=== PATIENT | male | born 1970 | race African-American/Black ===

== ENCOUNTER 2023-05-20 13:26 | Inpatient (IN) | payer OTHER ==
[2023-05-20 14:09] VITALS: BMI 23.6
[2023-05-20] MEDS ORDERED: COLLOIDAL OATMEAL 1 BAR EACH TP PRN (19:01)
[2023-05-20] MEDS ORDERED: NICOTINE POLACRILEX 2 MG GUM BUC PRN (19:01)
[2023-05-20] MEDS ORDERED: IBUPROFEN 400 MG TABLET (FP) PO PRN (19:01)
[2023-05-20] MEDS ORDERED: IBUPROFEN 600 MG TABLET (FP) PO PRN (19:01)
[2023-05-20] MEDS ORDERED: MAGNESIUM HYDROX 2400MG/30ML ORAL SUSPENSION 30 ML CUP PO PRN (19:01)
[2023-05-20] MEDS ORDERED: BENZONATATE 200 MG CAPSULE PO PRN (19:01)
[2023-05-20] MEDS ORDERED: hydrOXYzine PAMOATE 25 MG CAPSULE (FP) PO PRN (19:01)
[2023-05-20] MEDS ORDERED: P-EPHED 60MG/TRIPROLIDI 2.5MG TABLET PO PRN (19:01)
[2023-05-20] MEDS ORDERED: MAG HYDROX/AL HYDROX/SIMETH 30 ML UNIT-DOSE CUP PO PRN (19:01)
[2023-05-20] MEDS ORDERED: ACETAMINOPHEN 325 MG TABLET (FP) PO PRN (19:01)
[2023-05-20] MEDS ORDERED: guaiFENesin 600 MG TABLET.ER (FP) PO PRN (19:01)
[2023-05-20] MEDS ORDERED: POLYETHYLENE GLYCOL (HEALTHYLAX) 3350 17 GM PACKET PO PRN (19:01)
[2023-05-20] MEDS ORDERED: LOPERAMIDE HCL 2 MG CAPSULE PO PRN (19:01)
[2023-05-20] MEDS ORDERED: BENZOCAINE/MENTHOL (CHLORASEPTIC ) LOZENGE MM PRN (19:01)
[2023-05-20] MEDS ORDERED: TUBERCULIN PPD 5 TU/0.1ML VIAL ID ONE (19:51)
[2023-05-20] MEDS: MELATONIN 5 MG TABLETS PO SCH (21:27)
[2023-05-20] MEDS: THIAMINE HCL 100 MG TABLET (FP) PO SCH (21:27)
[2023-05-20] MEDS ORDERED: TUBERCULIN PPD 5 TU/0.1ML SYRINGE (IN PATIENT USE ONLY) ID ONE (23:02)
[2023-05-21 09:05] LABS: HEMATOCRIT 37.7 % (35.4-49); HEMOGLOBIN 12.8 GM/dL (11.7-16.9); MCH 29.7 pg (25.7-33.7); MEAN CELL VOLUME 87.5 fl (80-96); MEAN PLT VOLUME 8.4 fl (7.5-11.1); PLATELET COUNT 201 10^3/uL (134-434); RBC 4.31 M/mm3 (4.00-5.60); RDW 14.3 % (11.9-15.9); WHITE BLOOD COUNT 3.6 K/mm3 (4.0-10.0)
[2023-05-21 09:09] LABS: CHLORIDE 104 mmol/L (98-107); POTASSIUM 3.7 mmol/L (3.5-5.1); SODIUM 136 mmol/L (136-145)
[2023-05-21 09:11] LABS: CALCIUM 8.2 mg/dL (8.5-10.1)
[2023-05-21 09:12] LABS: ALBUMIN 2.9 g/dl (3.4-5.0); ANION GAP 4 mmol/L (4-13); BLOOD UREA NITROGEN 10.1 mg/dL (7-18); CO2 28 mmol/L (21-32); GLUCOSE,RANDOM 92 mg/dL (74-106)
[2023-05-21 09:15] LABS: SGOT/AST 14 U/L (15-37); SGPT/ALT 16 U/L (13-61)
[2023-05-21 09:16] LABS: TOT PROT 6.2 g/dl (6.4-8.2)
[2023-05-21 09:17] LABS: ALK PHOS 109 U/L (45-117); BILIRUBIN,TOTAL 0.3 mg/dL (0.2-1)
[2023-05-21] MEDS: PRENATAL VITAMINS W/ FOLIC ACID TABLET (FP) PO SCH (10:14)
[2023-05-21 11:35] LABS: SYPHILIS W/ RPR CONF NON-REACTIVE (NONREACTIVE)
[2023-05-21 15:42] LABS: EPI CELLS 5 /uL (0-25.1); HYALINE CASTS 1 /uL (0-3.1); URINE APPEARANCE CLEAR; URINE BACTERIA 38 /uL (0-1359); URINE BILIRUBIN NEGATIVE (NEGATIVE); URINE COLOR YELLOW; URINE GLUCOSE (UA) NEGATIVE (NEGATIVE); URINE KETONE NEGATIVE (NEGATIVE); URINE LEUK ESTERASE TRACE (NEGATIVE); URINE NITRITE NEGATIVE (NEGATIVE); URINE PROTEIN NEGATIVE (NEGATIVE); URINE RBC 4 /uL (0-23.9); URINE WBC 18 /uL (0-25.8)
[2023-05-21] MEDS: THIAMINE HCL 100 MG TABLET (FP) PO SCH (23:20)
[2023-05-21] MEDS: MELATONIN 5 MG TABLETS PO SCH (23:20)
[2023-05-22] MEDS: PRENATAL VITAMINS W/ FOLIC ACID TABLET (FP) PO SCH (09:56)
[2023-05-22] MEDS: MELATONIN 5 MG TABLETS PO SCH (22:16)
[2023-05-22] MEDS: THIAMINE HCL 100 MG TABLET (FP) PO SCH (22:17)
[2023-05-23] MEDS: PRENATAL VITAMINS W/ FOLIC ACID TABLET (FP) PO SCH (09:40)
[2023-05-23] MEDS ORDERED: SODIUM CHLORIDE NASAL SPRAY 44 ML BOTTLE NS PRN (12:36)
[2023-05-23] MEDS: CALCIUM 250MG/VIT-D 125 UNITS 1 COMBO TABLET PO SCH (13:00)
[2023-05-23] MEDS: guaiFENesin 600 MG TABLET.ER (FP) PO SCH ×2 (13:15→21:53)
[2023-05-23] MEDS: MELATONIN 5 MG TABLETS PO SCH (21:53)
[2023-05-23] MEDS: THIAMINE HCL 100 MG TABLET (FP) PO SCH (21:54)
[2023-05-24] MEDS: guaiFENesin 600 MG TABLET.ER (FP) PO SCH ×2 (10:05→23:45)
[2023-05-24] MEDS: CALCIUM 250MG/VIT-D 125 UNITS 1 COMBO TABLET PO SCH (10:05)
[2023-05-24] MEDS: PRENATAL VITAMINS W/ FOLIC ACID TABLET (FP) PO SCH (10:05)
[2023-05-24] MEDS: MELATONIN 5 MG TABLETS PO SCH (23:45)
[2023-05-24] MEDS: THIAMINE HCL 100 MG TABLET (FP) PO SCH (23:46)
[2023-05-25] MEDS: CALCIUM 250MG/VIT-D 125 UNITS 1 COMBO TABLET PO SCH (09:40)
[2023-05-25] MEDS: PRENATAL VITAMINS W/ FOLIC ACID TABLET (FP) PO SCH (09:40)
[2023-05-25] MEDS: guaiFENesin 600 MG TABLET.ER (FP) PO SCH ×2 (09:40→22:01)
[2023-05-25] MEDS: MELATONIN 5 MG TABLETS PO SCH (22:01)
[2023-05-25] MEDS: THIAMINE HCL 100 MG TABLET (FP) PO SCH (22:01)
[2023-05-26] MEDS: PRENATAL VITAMINS W/ FOLIC ACID TABLET (FP) PO SCH (10:33)
[2023-05-26] MEDS: CALCIUM 250MG/VIT-D 125 UNITS 1 COMBO TABLET PO SCH (10:33)
[2023-05-26] MEDS: guaiFENesin 600 MG TABLET.ER (FP) PO SCH ×2 (10:33→21:37)
[2023-05-26] MEDS: THIAMINE HCL 100 MG TABLET (FP) PO SCH (21:37)
[2023-05-26] MEDS: MELATONIN 5 MG TABLETS PO SCH (21:37)
[2023-05-27] MEDS: guaiFENesin 600 MG TABLET.ER (FP) PO SCH ×2 (09:30→23:26)
[2023-05-27] MEDS: PRENATAL VITAMINS W/ FOLIC ACID TABLET (FP) PO SCH (09:30)
[2023-05-27] MEDS: CALCIUM 250MG/VIT-D 125 UNITS 1 COMBO TABLET PO SCH (09:30)
[2023-05-27] MEDS: THIAMINE HCL 100 MG TABLET (FP) PO SCH (23:26)
[2023-05-27] MEDS: MELATONIN 5 MG TABLETS PO SCH (23:26)
[2023-05-28] MEDS: guaiFENesin 600 MG TABLET.ER (FP) PO SCH ×2 (10:00→21:54)
[2023-05-28] MEDS: PRENATAL VITAMINS W/ FOLIC ACID TABLET (FP) PO SCH (10:00)
[2023-05-28] MEDS: CALCIUM 250MG/VIT-D 125 UNITS 1 COMBO TABLET PO SCH (10:00)
[2023-05-28] MEDS: THIAMINE HCL 100 MG TABLET (FP) PO SCH (21:54)
[2023-05-28] MEDS: MELATONIN 5 MG TABLETS PO SCH (21:54)
[2023-05-29] MEDS: PRENATAL VITAMINS W/ FOLIC ACID TABLET (FP) PO SCH (09:29)
[2023-05-29] MEDS: guaiFENesin 600 MG TABLET.ER (FP) PO SCH ×2 (09:29→23:24)
[2023-05-29] MEDS: CALCIUM 250MG/VIT-D 125 UNITS 1 COMBO TABLET PO SCH (09:29)
[2023-05-29] MEDS: MELATONIN 5 MG TABLETS PO SCH (23:24)
[2023-05-29] MEDS: THIAMINE HCL 100 MG TABLET (FP) PO SCH (23:24)
[2023-05-30] MEDS: CALCIUM 250MG/VIT-D 125 UNITS 1 COMBO TABLET PO SCH (09:32)
[2023-05-30] MEDS: guaiFENesin 600 MG TABLET.ER (FP) PO SCH ×2 (09:32→22:50)
[2023-05-30] MEDS: PRENATAL VITAMINS W/ FOLIC ACID TABLET (FP) PO SCH (09:32)
[2023-05-30] MEDS: TOLNAFTATE 1% CREAM 15 GM TUBE TP SCH ×2 (14:29→22:50)
[2023-05-30] MEDS: BACLOFEN 10 MG TABLET (FP) PO SCH (22:49)
[2023-05-30] MEDS: MELATONIN 5 MG TABLETS PO SCH (22:49)
[2023-05-30] MEDS: THIAMINE HCL 100 MG TABLET (FP) PO SCH (22:50)
[2023-05-31] MEDS: BACLOFEN 10 MG TABLET (FP) PO SCH (09:36)
[2023-05-31] MEDS: CALCIUM 250MG/VIT-D 125 UNITS 1 COMBO TABLET PO SCH (09:37)
[2023-05-31] MEDS: PRENATAL VITAMINS W/ FOLIC ACID TABLET (FP) PO SCH (09:37)
[2023-05-31] MEDS: TOLNAFTATE 1% CREAM 15 GM TUBE TP SCH ×2 (09:37→22:02)
[2023-05-31] MEDS: guaiFENesin 600 MG TABLET.ER (FP) PO SCH ×2 (09:37→22:02)
[2023-05-31] MEDS ORDERED: BACLOFEN 10 MG TABLET (FP) PO PRN (16:06)
[2023-05-31] MEDS: MELATONIN 5 MG TABLETS PO SCH (22:02)
[2023-05-31] MEDS: THIAMINE HCL 100 MG TABLET (FP) PO SCH (22:02)
[2023-06-01] MEDS: CALCIUM 250MG/VIT-D 125 UNITS 1 COMBO TABLET PO SCH (10:02)
[2023-06-01] MEDS: PRENATAL VITAMINS W/ FOLIC ACID TABLET (FP) PO SCH (10:02)
[2023-06-01] MEDS: guaiFENesin 600 MG TABLET.ER (FP) PO SCH ×2 (10:02→21:48)
[2023-06-01] MEDS: TOLNAFTATE 1% CREAM 15 GM TUBE TP SCH ×2 (10:03→21:48)
[2023-06-01] MEDS: MELATONIN 5 MG TABLETS PO SCH (21:48)
[2023-06-01] MEDS: THIAMINE HCL 100 MG TABLET (FP) PO SCH (21:48)
[2023-06-02] MEDS: CALCIUM 250MG/VIT-D 125 UNITS 1 COMBO TABLET PO SCH (09:26)
[2023-06-02] MEDS: guaiFENesin 600 MG TABLET.ER (FP) PO SCH ×2 (09:26→21:24)
[2023-06-02] MEDS: PRENATAL VITAMINS W/ FOLIC ACID TABLET (FP) PO SCH (09:26)
[2023-06-02] MEDS: TOLNAFTATE 1% CREAM 15 GM TUBE TP SCH ×2 (09:26→21:24)
[2023-06-02] MEDS: MELATONIN 5 MG TABLETS PO SCH (21:24)
[2023-06-02] MEDS: THIAMINE HCL 100 MG TABLET (FP) PO SCH (21:25)
[2023-06-03] MEDS: TOLNAFTATE 1% CREAM 15 GM TUBE TP SCH ×2 (10:12→21:27)
[2023-06-03] MEDS: CALCIUM 250MG/VIT-D 125 UNITS 1 COMBO TABLET PO SCH (10:12)
[2023-06-03] MEDS: PRENATAL VITAMINS W/ FOLIC ACID TABLET (FP) PO SCH (10:12)
[2023-06-03] MEDS: guaiFENesin 600 MG TABLET.ER (FP) PO SCH ×2 (10:12→21:26)
[2023-06-03] MEDS: MELATONIN 5 MG TABLETS PO SCH (21:26)
[2023-06-03] MEDS: THIAMINE HCL 100 MG TABLET (FP) PO SCH (21:27)
[2023-06-04] MEDS: PRENATAL VITAMINS W/ FOLIC ACID TABLET (FP) PO SCH (10:28)
[2023-06-04] MEDS: TOLNAFTATE 1% CREAM 15 GM TUBE TP SCH ×2 (10:28→21:55)
[2023-06-04] MEDS: CALCIUM 250MG/VIT-D 125 UNITS 1 COMBO TABLET PO SCH (10:28)
[2023-06-04] MEDS: guaiFENesin 600 MG TABLET.ER (FP) PO SCH ×2 (10:28→21:55)
[2023-06-04] MEDS: THIAMINE HCL 100 MG TABLET (FP) PO SCH (21:55)
[2023-06-04] MEDS: MELATONIN 5 MG TABLETS PO SCH (21:55)
[2023-06-05] MEDS: PRENATAL VITAMINS W/ FOLIC ACID TABLET (FP) PO SCH (10:19)
[2023-06-05] MEDS: CALCIUM 250MG/VIT-D 125 UNITS 1 COMBO TABLET PO SCH (10:19)
[2023-06-05] MEDS: guaiFENesin 600 MG TABLET.ER (FP) PO SCH ×2 (10:19→21:46)
[2023-06-05] MEDS: TOLNAFTATE 1% CREAM 15 GM TUBE TP SCH ×2 (10:20→21:46)
[2023-06-05] MEDS: THIAMINE HCL 100 MG TABLET (FP) PO SCH (21:46)
[2023-06-05] MEDS: MELATONIN 5 MG TABLETS PO SCH (21:46)
[2023-06-06 07:53] VITALS: BP 118/84; PULSE 65; RESP 18; TEMP 97.7
== END 2023-06-06 08:49 | disposition home or self-care (01) | DRG 772 ==
LOC: YASAS 13:26 → Y3E 19:11
PROVIDERS: ADMIT Allergy & Immunology; ATTEND Psychiatry & Neurology Pain Medicine
PROC: HZ42ZZZ Group Counseling for Substance Abuse Treatment, Cognitive-Behavioral (ICD-10-PCS; principal; 2023-05-20)
DX: F11.20 Opioid dependence, uncomplicated (principal); F14.10 Cocaine abuse, uncomplicated; F12.10 Cannabis abuse, uncomplicated; F17.210 Nicotine dependence, cigarettes, uncomplicated; B35.1 Tinea unguium; R07.9 Chest pain, unspecified; R09.81 Nasal congestion
CPT/HCPCS: 36415; 80053; 80307; 81003; 85027; 86780; 86803; 87635; 93005; 93010